=== PATIENT | male | born 1975 | race Caucasian/White ===

== ENCOUNTER 2016-10-20 08:04 | Outpatient (CLI) ==
[2015-03-16 11:48] VITALS: BMI 36.1
--- NOTE | 2016-10-20 08:21 | DI ---
EXAM: RIGHT ELBOW HISTORY: Right elbow tendonitis FINDINGS: Right elbow three-view. Bone and joint structures appear normal. There is no joint disl ocation or effusion. No fracture is identified. Bone density and soft tissues are within normal li mits. IMPRESSION: Findings within normal limits.
--- NOTE | 2016-10-20 08:39 | DI ---
EXAM: Three views of the lumbar spine HISTORY: Lower back pain. COMPARISON: CT lumbar spine 10/24/[address] abdomen pelvis 03/16/2015 FINDINGS: There is no compression fracture or subluxation. There is narrowing of the lumbosacral ju nction. There is no lytic or blastic lesion. There is mild facet arthropathy at this level and small anterior disc osteophytes. The soft tissues are unremarkable. IMPRESSION: 1. Disc space narrowing with facet arthropathy and osteophyte formation at L5-S1. 2. No acute compression fracture or subluxation is identified. The
== END 2016-10-20 08:05 | disposition home or self-care (01) ==
LOC: RAD 08:04
PROVIDERS: ATTEND Internal Medicine
DX: M77.11 Lateral epicondylitis, right elbow (principal); M54.5 Low back pain